=== PATIENT | female | born 1975 | race African-American/Black ===

== ENCOUNTER 2018-06-14 12:21 | Emergency (ER) | payer MEDICAID ==
[~2018-06-14] VITALS: Ht 170.2 cm; Wt 54.4 kg
--- NOTE | 2018-06-14 12:44 | NUR ---
PATIENT HRE FOR C/O SKIN PROBLEMS ON LOWER EXTREMTIITES. LEGS/FEET ARE BEING WASHED WITH MILD SOAP....
[2018-06-14] MEDS: HYDROCODONE/APAP 10-325 MG TABLET PO ONE (13:05)
[2018-06-14] MEDS ORDERED: HYDROCODONE/APAP 10-325 MG TABLET ONE (13:09)
[2018-06-14] MEDS: SILVER SULFADIAZINE 1% CREAM 50 GM TP ONE (13:41)
[2018-06-14] MEDS ORDERED: SILVER SULFADIAZINE 1% CREAM 25 GM TUBE TP ONE (13:45)
--- NOTE | 2018-06-14 14:07 | NUR ---
Patient is resting comfortably on gurney speaking loudly about her feet, NAD, +dry & intact dressing , pending disposition
--- NOTE | 2018-06-14 14:19 | NUR ---
WOUNDS ON LOWER EXTREMITITES HAVE BEEN CLEANSED AND DRESSED. DC, RX (WITH PRECAUTIONS) AND FOLLOW UP INSTRUCTIONS GIVEN AND EXPLAINED TO PATIENT WHO STATES SHE UNDERSTANDS ALL INSTRUCTIONS.
== END 2018-06-14 14:21 | disposition home or self-care (01) ==
LOC: ER 12:21
DX: S90.922A Unspecified superficial injury of left foot, initial encounter (principal); S90.921A Unspecified superficial injury of right foot, initial encounter; G89.29 Other chronic pain; M25.572 Pain in left ankle and joints of left foot; M25.571 Pain in right ankle and joints of right foot; Z59.0 Homelessness; X58.XXXA Exposure to other specified factors, initial encounter; Y93.89 Activity, other specified; Y92.89 Other specified places as the place of occurrence of the external cause; Y99.8 Other external cause status
CPT/HCPCS: A4663

== ENCOUNTER 2018-09-22 18:20 | Emergency (ER) | payer MEDICAID ==
[~2018-09-22] VITALS: Ht 170.2 cm; Wt 54.4 kg
[2018-09-22] MEDS ORDERED: CARI350T PO (18:30)
[2018-09-22] MEDS ORDERED: MORP30TA PO (18:30)
[2018-09-22] MEDS ORDERED: DIAZ5TAB PO (18:30)
[2018-09-22] MEDS ORDERED: HYDR-4354 PO (18:30)
[2018-09-22] MEDS ORDERED: CLINDAMYCIN PHOSPHATE 600 MG/4 ML VIAL IM ONE (18:45)
[2018-09-22] MEDS ORDERED: CLINDAMYCIN PHOSPHATE 600 MG/4 ML VIAL ONE (18:53)
[2018-09-22] MEDS ORDERED: MORPHINE SULFATE 4 MG/1 ML DISP.SYRIN ONE (18:58)
[2018-09-22] MEDS ORDERED: MORPHINE SULFATE 4 MG/1 ML DISP.SYRIN IM ONE (19:00)
--- NOTE | 2018-09-22 19:18 | NUR ---
Patient discharged to home in stable conditon. Written and verbal after care instructions given. Patient verbalizes understanding of instructions.dressed the 2 wounds on the rle. food and juice provided for pt to take . 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 pt says that she had one before and they were not able to help her.
== END 2018-09-22 19:21 | disposition home or self-care (01) ==
LOC: ER 18:24
DX: L02.415 Cutaneous abscess of right lower limb (principal); F17.290 Nicotine dependence, other tobacco product, uncomplicated; Z88.0 Allergy status to penicillin; Z59.0 Homelessness; Z79.899 Other long term (current) drug therapy
CPT/HCPCS: 96372 ×2; 99283; 99406; J2270; J3490; A4663